=== PATIENT | female | born 1965 | race Caucasian/White ===

== ENCOUNTER 2019-06-25 20:38 | Emergency (ER) | payer OTHER ==
[~2019-06-25] VITALS: Ht 175.3 cm; Wt 131.5 kg
[2019-06-25] MEDS ORDERED: GLUCAGON FOR INJ 1 MG VIAL IV ONE (20:45)
[2019-06-25 21:34] LABS: BASOPHILS # (AUTO) 0.1 (0.0-0.1); BASOPHILS % 0.8 % (0.0-1.0); EOSINOPHILS # (AUTO) 0.3 (0.0-0.4); EOSINOPHILS % 3.2 % (0.0-6.0); HEMATOCRIT 37.5 % (34.2-44.1); HEMOGLOBIN 12.5 g/dL (12.0-16.0); LYMPHOCYTES # (AUTO) 3.3 (1.0-3.2); LYMPHOCYTES % 38.9 % (18.0-39.1); MEAN CORPUSCULAR HEMOGLOBIN 28.5 pg (28-32); MEAN CORPUSCULAR HGB CONC 33.3 g/dL (31-35); MEAN CORPUSCULAR VOLUME 85.6 fL (81-99); MONOCYTES # (AUTO) 0.5 (0.2-0.8); NEUTROPHILS # (AUTO) 4.2 (2.1-6.9); NEUTROPHILS % 50.4 % (38.7-80.0); PLATELET COUNT 289 x10e3/uL (140-360); RED BLOOD COUNT 4.38 x10e6/uL (3.6-5.1); RED CELL DISTRIBUTION WIDTH 13.4 % (11.7-14.4)
[2019-06-25 21:47] LABS: INR 0.93; PARTIAL THROMBOPLASTIN TIME 26.9 seconds (23.8-35.5)
[2019-06-25 21:59] LABS: ALANINE AMINOTRANSFERASE 32 IU/L (0-55); ALBUMIN 3.8 g/dL (3.5-5.0); ALBUMIN/GLOBULIN RATIO 1.2 (0.8-2.0); ALKALINE PHOSPHATASE 71 IU/L (40-150); ANION GAP 12.4 mmol/L (8-16); BLOOD UREA NITROGEN 11 mg/dL (7-26); BUN/CREATININE RATIO 16 (6-25); CALCIUM 9.4 mg/dL (8.4-10.2); CARBON DIOXIDE 28 mmol/L (22-29); CHLORIDE 102 mmol/L (98-107); CREATININE, SERUM 0.69 mg/dL (0.57-1.11); EST GLOMERULAR FILTRATION RATE > 60 ML/MIN (60-); GLUCOSE 184 mg/dL (74-118); POTASSIUM 3.4 mmol/L (3.5-5.1); SODIUM 139 mmol/L (136-145)
--- NOTE | 2019-06-25 22:00 | Diagnostic Imaging Report ---
EXAMINATION: CT of the neck without contrast HISTORY: Difficulty swallowing. Swallowing ham bone, which is stuck in throat. COMPARISON: None TECHNIQUE: Multidetector helical axial images were obtained from the sternal notch through the skull base without intravenous contrast. Images were reconstructed using soft tissue and bone algorithms and were viewed in multiplanar format. Dose modulation, iterative reconstruction, and/or weight based adjustment of the mA/kV was utilized to reduce the radiation dose to as low as reasonably achievable. FINDINGS: Primary lesion: Triangular-shaped approximately 2.3 x 2 cm bone density foreign body located within the cervical esophagus, at the level of C6 cervical spine. No evidence of perforation, extraluminal air or fluid collections at this time The airway is preserved. Nodes: No lymphadenopathy. Sinuses: Hypoplastic right maxillary sinus which is completely opacified. Mucosal inflammatory thickening of the left maxillary sinus. Oral cavity: Unremarkable. Salivary glands: Parotid and submandibular glands unremarkable. Pharynx: Unremarkable. Larynx: Unremarkable. Thyroid gland: Unremarkable. Upper esophagus: As above Blood vessels: Cannot be evaluated due to the lack of IV contrast. Bones: Unremarkable. IMPRESSION: Large approximately 2.3 x 2 cm foreign body (ham bone fragment) within the cervical esophagus at the level of C6. The airway is preserved at this time. The findings were discussed with the ER physician Dr. Osborne on 06/25/2019 at 9:40 PM Signed by: Dr. Diana David M.D. on 06/25/2019 9:57 PM
== END 2019-06-25 23:40 | disposition other institution (70) ==
LOC: ER 20:38
DX: T18.128A Food in esophagus causing other injury, initial encounter (principal); R09.89 Other specified symptoms and signs involving the circulatory and respiratory systems; I10 Essential (primary) hypertension; E11.9 Type 2 diabetes mellitus without complications
CPT/HCPCS: 36415; 70490; 80053; 85025; 85610; 85730; 99284; J1610

== ENCOUNTER 2024-08-23 20:17 | Inpatient (IN) | payer BC, OTHER ==
[~2024-08-23] VITALS: Ht 175.3 cm; Wt 100.7 kg
[2024-08-23 20:51] VITALS: TEMP 98.5
[2024-08-23] MEDS ORDERED: SODIUM CHLORIDE FLUSH 10 ML SYR IV PRN (21:00)
[2024-08-23] MEDS: SODIUM CHLORIDE 0.9% 1000ML 1,000 ML IV ONE (21:10)
[2024-08-23 21:11] LABS: BASOPHILS # (AUTO) 0.1 (0.0-0.1); BASOPHILS % 0.6 % (0.0-1.0); EOSINOPHILS # (AUTO) 0.2 (0.0-0.4); HEMATOCRIT 38.2 % (34.2-44.1); HEMOGLOBIN 12.9 g/dL (12.0-16.0); LYMPHOCYTES # (AUTO) 2.4 (1.0-3.2); LYMPHOCYTES % 23.4 % (18.0-39.1); MEAN CORPUSCULAR HEMOGLOBIN 29.1 pg (28-32); MEAN CORPUSCULAR HGB CONC 33.8 g/dL (31-35); MEAN CORPUSCULAR VOLUME 86.2 fL (81-99); MONOCYTES # (AUTO) 0.6 (0.2-0.8); MONOCYTES % 5.9 % (4.4-11.3); NEUTROPHILS % 67.3 % (38.7-80.0); PLATELET COUNT 264 x10e3/uL (140-360); RED BLOOD COUNT 4.43 x10e6/uL (3.6-5.1); RED CELL DISTRIBUTION WIDTH 13.2 % (11.7-14.4); WHITE BLOOD COUNT 10.39 x10e3/uL (4.8-10.8)
[2024-08-23 21:28] LABS: ALBUMIN 3.6 g/dL (3.5-5.0); ALBUMIN/GLOBULIN RATIO 0.9 (0.8-2.0); ANION GAP 18.6 mmol/L (8-16); BILIRUBIN,TOTAL 0.3 mg/dL (0.2-1.2); CALCIUM 9.5 mg/dL (8.4-10.2); CREATININE, SERUM 0.79 mg/dL (0.57-1.11); POTASSIUM 3.6 mmol/L (3.5-5.1); TOTAL PROTEIN 7.4 g/dL (6.5-8.1)
[2024-08-23 21:34] LABS: TROPONIN I 0.003 ng/mL (0-0.300)
[2024-08-23] MEDS: KCL 20 MEQ PACKET/ ORAL SOLN PO STA (21:54)
[2024-08-23] MEDS: MAGNESIUM SULFATE 2GM/50ML 50 ML IV ONE (21:55)
[2024-08-23] MEDS: POTASSIUM CHLORIDE 20MEQ/100ML 100 ML IV ONE (21:55)
[2024-08-24] VITALS (15 sets, daily range): BP systolic 97–146; BP diastolic 47–85; PULSE 30–95; RESP 13–21; TEMP 98.1–98.4; O2SAT 92–100
[2024-08-24] MEDS: BENZOCAINE 20% SPR 60 ML CAN MT ONE (00:53)
[2024-08-24] MEDS ORDERED: MUPIROCIN 2% OINT 22 GM TUBE TOP SCH (01:15)
[2024-08-24] MEDS ORDERED: ONDANSETRON HCL INJ 2MG/ML 2ML 2 MG/ML VIAL IV PRN (01:15)
[2024-08-24] MEDS: SODIUM CHLORIDE 0.9% 1000ML 1,000 ML IV SCH (02:18)
[2024-08-24] MEDS ORDERED: CRESTOR40 MG PO (08:54)
[2024-08-24] MEDS ORDERED: MOUNJARO5 MG/0.5 M SQ (08:54)
[2024-08-24] MEDS ORDERED: GLIMEPIRIDE2 MG PO (08:54)
[2024-08-24] MEDS ORDERED: IRBESARTAN150 MG PO (08:54)
[2024-08-24] MEDS ORDERED: METFORMIN HCL500 MG PO (08:54)
[2024-08-24 09:15] LABS: TROPONIN I 0.093 ng/mL (0-0.300)
[2024-08-24 10:19] LABS: CHOL/HDL RATIO 3.2 (3.0-3.6)
[2024-08-24] MEDS: MAGNESIUM SULFATE 2GM/50ML 50 ML IV SCH (10:29)
[2024-08-24 10:40] LABS: THYROID STIMULATING HORMONE 0.216 uIU/mL (0.350-4.940)
[2024-08-24] MEDS ORDERED: DEXTROSE 50% SYRINGE 50 ML IV PRN (12:45)
[2024-08-24] MEDS ORDERED: ALBUTEROL SULF 0.083% NEB SOLN 3 ML NEB NEB PRN (13:15)
[2024-08-24 13:40] LABS: TROPONIN I 0.079 ng/mL (0-0.300)
[2024-08-24] MEDS ORDERED: MELOXICAM7.5 MG PO (14:44)
[2024-08-24] MEDS ORDERED: ACTOS15 MG PO (14:44)
[2024-08-24] MEDS: SALINE 0.65% NAS SOLN 1 SPRAY BTL SCH (17:00)
[2024-08-24] MEDS: FLUTICASONE PROPIONATE NASAL SPRAY NS SCH (17:00)
[2024-08-24] MEDS: FAMOTIDINE 20 MG/2 ML VIAL IV SCH (17:26)
[2024-08-24] MEDS: INSULIN LISPRO 100 UNIT/1 ML 3ML VIAL SQ SCH (17:28)
[2024-08-24] MEDS ORDERED: BISACODYL 10 MG SUPP PR PRN (22:45)
[2024-08-24] MEDS ORDERED: POLYETHYLENE GLYCOL 3350 17 GM PACK PO PRN (22:45)
[2024-08-25] VITALS (13 sets, daily range): BP systolic 102–171; BP diastolic 50–87; PULSE 65–90; RESP 13–21; TEMP 97.7–98.6; O2SAT 93–100
[2024-08-25 06:39] LABS: BASOPHILS # (AUTO) 0.1 (0.0-0.1); BASOPHILS % 0.6 % (0.0-1.0); EOSINOPHILS # (AUTO) 0.2 (0.0-0.4); EOSINOPHILS % 2.2 % (0.0-6.0); HEMATOCRIT 37.1 % (34.2-44.1); HEMOGLOBIN 12.6 g/dL (12.0-16.0); LYMPHOCYTES # (AUTO) 3.4 (1.0-3.2); MEAN CORPUSCULAR HEMOGLOBIN 29.6 pg (28-32); MEAN CORPUSCULAR VOLUME 87.1 fL (81-99); MONOCYTES # (AUTO) 0.6 (0.2-0.8); MONOCYTES % 6.9 % (4.4-11.3); NEUTROPHILS # (AUTO) 4.8 (2.1-6.9); NEUTROPHILS % 52.5 % (38.7-80.0); PLATELET COUNT 281 x10e3/uL (140-360); RED BLOOD COUNT 4.26 x10e6/uL (3.6-5.1); RED CELL DISTRIBUTION WIDTH 13.5 % (11.7-14.4); WHITE BLOOD COUNT 9.08 x10e3/uL (4.8-10.8)
[2024-08-25 07:05] LABS: ALBUMIN 3.4 g/dL (3.5-5.0); ANION GAP 15.7 mmol/L (8-16); BILIRUBIN,TOTAL 0.5 mg/dL (0.2-1.2); CALCIUM 8.9 mg/dL (8.4-10.2); CREATININE, SERUM 0.66 mg/dL (0.57-1.11); POTASSIUM 3.7 mmol/L (3.5-5.1); TOTAL PROTEIN 6.9 g/dL (6.5-8.1)
[2024-08-25] MEDS: ACETAMINOPHEN 325 MG TAB PO PRN (08:38)
[2024-08-25] MEDS ORDERED: IOPAMIDOL 370 MG/ML 100 ML INFUS..BTL INJ ONE (13:22)
[2024-08-25] MEDS: POTASSIUM CHLORIDE 20 MEQ TAB CR PO ONE (13:59)
[2024-08-25] MEDS: SODIUM CHLORIDE 0.9% 250ML 250 ML ONE (18:05)
[2024-08-25] MEDS ORDERED: LOPERAMIDE HCL 2 MG CAP PO ONE (18:45)
== END 2024-08-25 20:07 | disposition home or self-care (01) | DRG 203 ==
LOC: ER 20:50 → ERHOLD 08-24 01:15 → ICU 08-24 02:34 → MED/SURG3 08-25 15:54
PROVIDERS: ADMIT Internal Medicine; ATTEND Internal Medicine
DX: J45.31 Mild persistent asthma with (acute) exacerbation (principal); J32.9 Chronic sinusitis, unspecified; E11.9 Type 2 diabetes mellitus without complications; E78.5 Hyperlipidemia, unspecified; I10 Essential (primary) hypertension; R00.0 Tachycardia, unspecified; J38.5 Laryngeal spasm; I49.8 Other specified cardiac arrhythmias; E66.811 Obesity, class 1; Z68.32 Body mass index [BMI] 32.0-32.9, adult; J30.2 Other seasonal allergic rhinitis; Z91.018 Allergy to other foods; Z83.3 Family history of diabetes mellitus; Z82.5 Family history of asthma and other chronic lower respiratory diseases
CPT/HCPCS: 36415; 70491; 71045; 71260; 80053; 80061; 82550; 82948; 83036; 83735; 83880; 84439; 84443; 84480; 84484; 85025; 85379; 93005; 93306; 94760; 94799; 99252; 99285; J0696; J1308; J3475; J3480; J7030; J7050; Q9967